=== PATIENT | female | born 1975 | race Caucasian/White ===

== ENCOUNTER 2019-05-25 21:59 | Emergency (ER) | payer OTHER ==
[~2019-05-25] VITALS: Ht 175.3 cm; Wt 86.7 kg
[2019-05-25 22:07] VITALS: BP 166/91
[2019-05-25] MEDS ORDERED: HYDROcodone/acetaminophen 10/325mg tab PO ONE (22:25)
[2019-05-26] MEDS ORDERED: NAPR-56 PO (00:25)
[2019-05-26] MEDS ORDERED: HYDR-4383 PO (00:25)
[2019-05-26] MEDS ORDERED: naproxen 500mg tablet PO ONE (00:25)
== END 2019-05-26 01:00 | disposition home or self-care (01) ==
LOC: ER 22:01
DX: S80.01XA Contusion of right knee, initial encounter (principal); S60.211A Contusion of right wrist, initial encounter; M65.261 Calcific tendinitis, right lower leg; F17.200 Nicotine dependence, unspecified, uncomplicated; Z98.890 Other specified postprocedural states; Z79.899 Other long term (current) drug therapy; W01.0XXA Fall on same level from slipping, tripping and stumbling without subsequent striking against object, initial encounter; Y93.01 Activity, walking, marching and hiking; Y92.89 Other specified places as the place of occurrence of the external cause; Y99.8 Other external cause status
CPT/HCPCS: 29125; 73110; 73564; 99283